=== PATIENT | male | born 1980 | race Caucasian/White ===

== ENCOUNTER 2022-04-30 10:21 | Emergency (ER) | payer SELFPAY ==
[~2022-04-30] VITALS: Ht 172.7 cm; Wt 108.9 kg
[2022-04-30 10:32] VITALS: BP 146/77
[2022-04-30] MEDS ORDERED: CEPH500C2 PO (10:46)
--- NOTE | 2022-04-30 11:25 | NUR ---
Patient discharged to home in stable condition. Written and verbal after care instructions given. Patient verbalizes understanding of instruction.
--- NOTE | 2022-04-30 11:27 | NUR ---
PT C/O "BUMPS" ON HIS PENIS AFTER INJECTING HIMSELF WITH "ERECTION MEDICATION.
== END 2022-04-30 11:46 | disposition home or self-care (01) ==
LOC: ER 11:33
DX: N48.29 Other inflammatory disorders of penis (principal); Z91.018 Allergy to other foods; Z79.899 Other long term (current) drug therapy